=== PATIENT | female | born 1950 ===

== ENCOUNTER 2017-10-11 21:23 | Emergency (ER) | payer MEDICARE, OTHER ==
[2017-10-11 21:42] VITALS: RESP 16; O2SAT 98
[2017-10-11] MEDS ORDERED: Sodium Chloride 0.9% 1,000 ML IV STA (22:44)
--- NOTE | 2017-10-11 22:52 | ED PDOC ---
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 Associated multiple vomiting episodes. PAtient describes dizziness as "room spinning", worse with movement of head. Denies headache, neck pain, vision changes, extremity numbness/weakness, chest pain, shortness of breath, palpitations. Past Medical History Reviewed: Historical Data, Nursing Documentation, Vital Signs Vital Signs: Last Vital Signs Temp 98.2 F 10/11/17 21:38 Pulse 76 10/11/17 21:38 Resp 16 10/11/17 21:38 BP 167/83 H 10/11/17 21:38 Pulse Ox 98 10/12/17 00:09 - Medical History PMH: Diabetes - Family History Family History: States: No Known Family Hx - Living Arrangements Living Arrangements: With Family - Home Medications Home Medications: Ambulatory Orders Medication Instructions Recorded Meclizine [Meclizine*] 25 mg PO TID PRN #21 tab 10/12/17 Ondansetron ODT [Zofran ODT] 4 mg PO Q8 PRN #10 odt 10/12/17 - Allergies Allergies/Adverse Reactions: Allergies Allergy/AdvReac Type Severity Reaction Status Date / Time No Known Allergies Allergy Verified 10/11/17 21:41 Review of Systems ROS Statement: Except As Marked, All Systems Reviewed And Found Negative Gastrointestinal: Positive for: Nausea, Vomiting Neurological: Positive for: Dizziness Physical Exam - Reviewed Nursing Documentation Reviewed: Yes Vital Signs Reviewed: Yes - Physical Exam Appears: Positive for: Well, Non-toxic, Uncomfortable (vomiting) Head Exam: Positive for: ATRAUMATIC, NORMAL INSPECTION, NORMOCEPHALIC Skin: Positive for: Normal Color Eye Exam: Positive for: EOMI, PERRL, Nystagmus ENT: Positive for: Normal ENT Inspection Cardiovascular/Chest: Positive for: Regular Rate, Rhythm Respiratory: Positive for: Normal Breath Sounds Gastrointestinal/Abdominal: Positive for: Normal Exam Back: Positive for: Normal Inspection Extremity: Positive for: Normal ROM Neurologic/Psych: Positive for: Alert, Oriented. Negative for: Motor/Sensory Deficits - Laboratory Results Result Diagrams: 10/11/17 23:02 10/11/17 23:02 - ECG ECG: Positive for: Viewed By Me (reviewed by ED attending) ECG Rhythm: Positive for: Sinus Rhythm O2 Sat by Pulse Oximetry: 98 - Progress ED Course And Treament: labs, CT head, EKG, IV fluids, PO meclizine, Zofran oDT EXAM: CT Head Without Intravenous Contrast EXAM DATE/TIME: 10/11/2017 10:44 PM CLINICAL HISTORY: 66 years old, female; Signs and symptoms; Dizziness and other: Vomiting; Additional info: Dizziness, vomiting TECHNIQUE: Axial computed tomography images of the head/brain without intravenous contrast. All CT scans at this facility use one or more dose reduction techniques, viz.: automated exposure control; ma/kV adjustment per patient size (including targeted exams where dose is matched to indication; i.e. head); or iterative reconstruction technique. Coronal and sagittal reformatted images were created and reviewed. COMPARISON: There are no prior studies for comparison. FINDINGS: Brain: There is prominence of sulci, gyri and ventricles. There is no midline shift. There are no intraaxial or extra axial mass lesions or areas of hemorrhage. Diaz-white differentiation is maintained. Ventricles: See above. Bony structures: Cranial vault is intact. Soft tissues: unremarkable Sinuses: There is no acute sinusitis. Ears and mastoids: Middle ears and mastoids unremarkable. Orbits: Orbital contents are unremarkable. IMPRESSION: No acute intracranial abnormality On re-eval, patient resting comfortably; states dizziness resolved. Tolerating PO. Patient educated on findings, discharged with rx Zofran, Meclizine. Advised follow up PMD within 2 days. Return precautions given. Disposition - Clinical Impression Clinical Impression: Vertigo - Patient ED Disposition Is Patient to be Admitted: No Counseled Patient/Family Regarding: Studies Performed, Diagnosis, Need For Followup, Rx Given - Disposition Disposition: Routine/Home Disposition Time: 00:44 Condition: IMPROVED Prescriptions: Meclizine [Meclizine*] 25 mg PO TID PRN #21 tab PRN Reason: Dizziness Ondansetron ODT [Zofran ODT] 4 mg PO Q8 PRN #10 odt PRN Reason: Nausea/Vomiting Instructions: Vertigo (a Type of Dizziness) (DC) Forms: [employer] (Georgian) Print Language: AMHARIC
[2017-10-11 23:06] LABS: BASO % 0.4 % (0.0-2.0); EOS % 0.2 % (0.0-4.0); HEMOGLOBIN 12.7 g/dL (12.0-16.0); LYMPH # 1.5 K/uL (1.0-4.3); MEAN CELL VOLUME 86.1 fl (81.0-99.0); MEAN CORPUSCULAR HEMOGLOBIN 28.3 pg (27.0-31.0); MEAN CORPUSCULAR HGB CONC 32.9 g/dL (33.0-37.0); MONO # 0.9 K/uL (0.0-0.8); MONO % 7.1 % (0.0-10.0); NEUT # 9.8 K/uL (1.8-7.0); NEUT % 80.3 % (50.0-75.0); NRBC % 0.1 % (0.0-0.0); RBC 4.48 Mil/uL (3.80-5.20); RED CELL DISTRIBUTION WIDTH 13.7 % (11.5-14.5); WHITE BLOOD COUNT 12.2 K/uL (4.8-10.8)
[2017-10-11 23:18] LABS: ALB/GLOB RATIO 1.3 (1.0-2.1); ALBUMIN 4.4 g/dL (3.5-5.0); ALT/SGPT 61 U/L (9-52); AST/SGOT 34 U/L (14-36); BLOOD UREA NITROGEN 25 mg/dl (7-17); CALCIUM 9.4 mg/dL (8.4-10.2); GFR AFRICAN-AMERICAN > 60; GFR NON-AFRICAN AMERICAN > 60
--- NOTE | 2017-10-12 00:01 | CT ---
EXAM: CT Head Without Intravenous Contrast EXAM DATE/TIME: 10/11/2017 10:44 PM CLINICAL HISTORY: 66 years old, female; Signs and symptoms; Dizziness and other: Vomiting; Additional info: Dizziness, vomiting TECHNIQUE: Axial computed tomography images of the head/brain without intravenous contrast. All CT scans at this facility use one or more dose reduction techniques, viz.: automated exposure control; ma/kV adjustment per patient size (including targeted exams where dose is matched to indication; i.e. head); or iterative reconstruction technique. Coronal and sagittal reformatted images were created and reviewed. COMPARISON: There are no prior studies for comparison. FINDINGS: Brain: There is prominence of sulci, gyri and ventricles. There is no midline shift. There are no intra-axial or extra axial mass lesions or areas of hemorrhage. Diaz-white differentiation is maintained. Ventricles: See above. Bony structures: Cranial vault is intact. Soft tissues: unremarkable Sinuses: There is no acute sinusitis. Ears and mastoids: Middle ears and mastoids unremarkable. Orbits: Orbital contents are unremarkable. IMPRESSION: No acute intracranial abnormality
[2017-10-12 00:45] VITALS: BP 128/73; PULSE 77; TEMP 97.6
--- NOTE | 2017-10-12 09:51 | CARD ---
APPROVED REPORT EKG Measurement Heart [id number] <Conclusion> Normal sinus rhythm Normal ECG
== END 2017-10-12 01:11 | disposition home or self-care (01) ==
LOC: H.ER 21:23
DX: R42 Dizziness and giddiness (principal); E11.9 Type 2 diabetes mellitus without complications
CPT/HCPCS: 70450; 80053; 82948; 85025; 93005; 99284; J7040

== ENCOUNTER 2018-03-21 01:43 | Emergency (ER) | payer MEDICARE ==
[2018-03-21 02:05] VITALS: BMI 30.1
[2018-03-21] MEDS ORDERED: Sodium Chloride 0.9% 1,000 ML IV STA (02:15)
--- NOTE | 2018-03-21 02:17 | ED PDOC ---
HPI: Abdomen Time Seen by Provider: 03/21/18 02:15 Chief Complaint (Nursing): Abdominal Pain Chief Complaint (Provider): ABD PAIN History Per: Patient (67 Y/O FEMALE HERE FOR EVALUATION OF LEFT FLANK PAIN RADIATING TO ABDOMEN ASSOCIATED WITH NAUSEA/VOMITING TODAY. DENIES ANY DYSURIA/ HEMATURIA/FEVERS/CHILLS. NO H/O ABD SURGERIES. NOTES SYMPTOMS BEGAN EARLIER TODAY EVENING.) Past Medical History Reviewed: Historical Data, Nursing Documentation, Vital Signs Vital Signs: Last Vital Signs Temp 97.9 F 03/21/18 06:10 Pulse 81 03/21/18 06:10 Resp 18 03/21/18 06:10 BP 163/72 H 03/21/18 06:10 Pulse Ox 98 03/23/18 14:08 - Medical History PMH: Diabetes - Family History Family History: States: No Known Family Hx - Home Medications Home Medications: Ambulatory Orders Medication Instructions Recorded Meclizine [Meclizine*] 25 mg PO TID PRN #21 tab 10/12/17 Ondansetron ODT [Zofran ODT] 4 mg PO Q8 PRN #10 odt 10/12/17 Cefdinir [Omnicef] 300 mg PO BID #20 cap 03/21/18 Naproxen 375 mg PO Q8 PRN #21 tablet 03/21/18 Ondansetron ODT [Zofran ODT] 4 mg PO Q8 PRN #10 odt 03/21/18 Tamsulosin [Flomax] 0.4 mg PO DAILY #10 cap 03/21/18 oxyCODONE/Acetaminophen [Percocet 1 ea PO Q6 PRN #10 tab 03/21/18 5/325 mg Tab] - Allergies Allergies/Adverse Reactions: Allergies Allergy/AdvReac Type Severity Reaction Status Date / Time No Known Allergies Allergy Verified 03/21/18 02:05 Review of Systems ROS Statement: Except As Marked, All Systems Reviewed And Found Negative Gastrointestinal: Positive for: Abdominal Pain Physical Exam - Reviewed Nursing Documentation Reviewed: Yes Vital Signs Reviewed: Yes - Physical Exam Appears: Positive for: Well, Non-toxic, No Acute Distress Head Exam: Positive for: ATRAUMATIC, NORMAL INSPECTION, NORMOCEPHALIC Skin: Positive for: Normal Color, Warm, DRY Eye Exam: Positive for: EOMI, Normal appearance, PERRL ENT: Positive for: Normal ENT Inspection Neck: Positive for: Normal, Painless ROM Cardiovascular/Chest: Positive for: Regular Rate, Rhythm Respiratory: Positive for: CNT, Normal Breath Sounds Gastrointestinal/Abdominal: Positive for: Normal Exam, Soft, Tenderness (LEFT UPPER QUADRANT/LEFT FLANK TENDERNESS) Back: Positive for: Normal Inspection Extremity: Positive for: Normal ROM Neurologic/Psych: Positive for: Alert, Oriented - Laboratory Results Result Diagrams: 03/21/18 02:25 03/21/18 02:25 - ECG O2 Sat by Pulse Oximetry: 98 - Progress ED Course And Treament: TORADOL 15 MG IV X 1 DOSE NS 1 LITER 500ML PER HOUR ct abd/pelvis: FINDINGS: Lower thorax: Small hiatal hernia. Right middle lobe calcified pulmonary granuloma. Medial right lower lobe, right middle lobe and lingular infiltrate and consolidation representing atelectasis versus sequela of infectious or inflammatory etiology. Trace pericardial fluid. ABDOMEN: Liver: Enlarged nodular fatty liver. Gallbladder and bile ducts: Partial distention of the gallbladder. Pancreas: Normal. No ductal dilation. Spleen: Normal. No splenomegaly. Adrenals: Normal. No mass. Kidneys and ureters: Nonobstructive right renal stone. Left perinephritic inflammatory changes with moderate left hydroureteronephrosis and a 4 mm left distal ureteral stone seen on image 148 series 3 representing acute obstructive uropathy. Stomach and bowel: Diverticulosis. Appendix: Normal appendix. PELVIS: Bladder: Partially decompressed bladder with bladder wall thickening. Correlation with urinalysis is recommended only if clinical cystitis is suspected. Reproductive: Retroverted bulbous uterus. ABDOMEN and PELVIS: Intraperitoneal space: Normal. No free air. No significant fluid collection. Bones/joints: Degenerative changes within bilateral hips. Pars interarticularis defect at L5. Soft tissues: Unremarkable. Vasculature: Normal. No abdominal aortic aneurysm. Lymph nodes: Normal. No enlarged lymph nodes. IMPRESSION: Left perinephritic inflammatory changes with moderate left hydroureteronephrosis and a 4 mm left distal ureteral stone seen on image 148 series 3 representing acute obstructive uropathy. Thank you for allowing us to participate in the care of your patient. Dictated and Authenticated by: Milly Yan MD FLomax 0.4mg po x 1 dose Morphine 2mg iv x 1 dose Rocepine 1 gm iv x 1 dose Disposition - Clinical Impression Clinical Impression: Renal colic - Patient ED Disposition Is Patient to be Admitted: No - Disposition Referrals: Beth Knapp [Primary Care Provider] - João Randhawa MD [Medical Doctor] - Disposition: Routine/Home Disposition Time: 06:10 Condition: FAIR Prescriptions: Cefdinir [Omnicef] 300 mg PO BID #20 cap Naproxen 375 mg PO Q8 PRN #21 tablet PRN Reason: Pain, Moderate (4-7) Ondansetron ODT [Zofran ODT] 4 mg PO Q8 PRN #10 odt PRN Reason: Nausea/Vomiting oxyCODONE/Acetaminophen [Percocet 5/325 mg Tab] 1 ea PO Q6 PRN #10 tab PRN Reason: Pain, Severe (8-10) Tamsulosin [Flomax] 0.4 mg PO DAILY #10 cap Instructions: Renal Colic (DC) Forms: [facility] ED School/Work Excuse Print Language: KAZAKH
[2018-03-21 02:35] LABS: BASO % 0.4 % (0.0-2.0); EOS # 0.1 K/uL (0.0-0.7); EOS % 0.9 % (0.0-4.0); HEMOGLOBIN 12.8 g/dL (12.0-16.0); LYMPH # 1.8 K/uL (1.0-4.3); LYMPH % 19.4 % (20.0-40.0); MEAN CELL VOLUME 85.5 fl (81.0-99.0); MEAN CORPUSCULAR HEMOGLOBIN 28.4 pg (27.0-31.0); MEAN CORPUSCULAR HGB CONC 33.3 g/dL (33.0-37.0); MEAN PLATELET VOLUME 8.9 fl (7.2-11.7); MONO # 0.7 K/uL (0.0-0.8); MONO % 7.1 % (0.0-10.0); NEUT # 6.8 K/uL (1.8-7.0); NEUT % 72.2 % (50.0-75.0); RBC 4.49 Mil/uL (3.80-5.20); RED CELL DISTRIBUTION WIDTH 13.6 % (11.5-14.5); WHITE BLOOD COUNT 9.5 K/uL (4.8-10.8)
[2018-03-21 02:47] LABS: ALB/GLOB RATIO 1.2 (1.0-2.1); ALBUMIN 4.5 g/dL (3.5-5.0); ALT/SGPT 58 U/L (9-52); AST/SGOT 39 U/L (14-36); BLOOD UREA NITROGEN 20 mg/dl (7-17); CALCIUM 9.5 mg/dL (8.4-10.2); GFR NON-AFRICAN AMERICAN > 60; LIPASE 121 U/L (23-300)
[2018-03-21] MEDS ORDERED: cefTRIAXone (Rocephin) 1 gm Inj IVPB ONE (03:36)
[2018-03-21] MEDS ORDERED: cefTRIAXone (Rocephin) 1 gm Inj ONE (03:59)
[2018-03-21 04:08] LABS: SQUAMOUS EPITHIAL 7 /hpf (0-5); URINE BACTERIA OCC (<OCC); URINE BILIRUBIN NEGATIVE (NEGATIVE); URINE BLOOD NEGATIVE (NEGATIVE); URINE CLARITY CLOUDY (Clear); URINE COLOR YELLOW (YELLOW); URINE GLUCOSE (UA) 50 mg/dL (Normal); URINE LEUKOCYTE ESTERASE TRACE Leu/uL (Negative); URINE PROTEIN NEGATIVE (NEGATIVE); URINE UROBILINOGEN 0.2-1.0 mg/dL (0.2-1.0)
[2018-03-21 07:51] VITALS: BP 163/72; PULSE 81; RESP 18; TEMP 97.9
--- NOTE | 2018-03-21 09:38 | RAD ---
Date of service: 03/21/2018 HISTORY: routine COMPARISON: Chest radiographs 09/12/2013. TECHNIQUE: Chest PA and lateral FINDINGS: LUNGS: No active pulmonary disease. PLEURA: No significant pleural effusion identified. No pneumothorax apparent. CARDIOVASCULAR: Normal. OSSEOUS STRUCTURES: Incidental orthopedic anchor identified in the right humerus proximally. VISUALIZED UPPER ABDOMEN: Normal. OTHER FINDINGS: None. IMPRESSION: No interval acute cardiopulmonary disease appreciated.
--- NOTE | 2018-03-21 15:22 | CT ---
Date of service: 03/21/2018 PROCEDURE: CT Abdomen and Pelvis without intravenous contrast HISTORY: R/O RENAL COLIC COMPARISON: Abdomen pelvis CT exam with oral contrast only 03/23/2012. TECHNIQUE: Helical CT of the abdomen and pelvis was performed without oral or intravenous contrast as per referring physician request. Contrast dose: None Radiation dose: Total exam DLP = 509.14 mGy-cm. This CT exam was performed using one or more of the following dose reduction techniques: Automated exposure control, adjustment of the mA and/or kV according to patient size, and/or use of iterative reconstruction technique. FINDINGS: LOWER THORAX: Calcified granulomata are reiterated at the right middle lobe base with visualized lower thorax otherwise unremarkable once again. LIVER: Mild hepatomegaly is appreciate without focal mass appreciable in this noncontrast examination. Subtle nodular peripheral changes suggests mild cirrhosis. Mild Hayley megaly is appreciated with somewhat nodular GALLBLADDER AND BILE DUCTS: Unremarkable. PANCREAS: Unremarkable. No gross lesion or ductal dilatation. SPLEEN: Unremarkable. ADRENALS: Unremarkable. No mass. KIDNEYS AND URETERS: A punctate nonobstructing intrarenal calculus identified at the right kidney with none identified at the left. Trace layered left perinephric reactive changes are identified with mild left hydronephrosis and hydroureter caused by a 5 distal left ureteral calculus at the distal left ureter a few cm proximal to the left ureterovesical junction. VASCULATURE: Unremarkable. No aortic aneurysm. BOWEL: Unremarkable. No obstruction. No gross mural thickening. APPENDIX: Unremarkable. Normal appendix. PERITONEUM: Unremarkable. No free fluid. No free air. LYMPH NODES: Unremarkable. No enlarged lymph nodes. BLADDER: Unremarkable. REPRODUCTIVE: Unremarkable. BONES: No acute fracture. OTHER FINDINGS: None. IMPRESSION: Mild left hydroureteronephrosis caused by 5 mm calculus obstructing the distal left ureter a few cm proximal left ureter vessel junction. Nonobstructing punctate renal calculus midpole right kidney. A large, mildly cirrhotic liver. Concordant preliminary report from [facility], 03/21/2018.
[2018-03-23 10:31] VITALS: O2SAT 98
== END 2018-03-21 06:10 | disposition home or self-care (01) ==
LOC: H.ER 01:43
DX: N23 Unspecified renal colic (principal); E11.9 Type 2 diabetes mellitus without complications; K74.60 Unspecified cirrhosis of liver; N13.2 Hydronephrosis with renal and ureteral calculous obstruction
CPT/HCPCS: 71046; 74176; 80053; 81003; 81025; 83690; 85025; 87086; 96374; 96375; 99284; J0696; J1885; J2270; J7030